=== PATIENT | female | born 1960 | race Caucasian/White ===

== ENCOUNTER 2022-05-07 15:22 | Outpatient (CLI) | payer OTHER | END 2022-05-07 15:23 | disposition critical access hospital (66) | LOC: EMS 15:22 | DX: R56.9 Unspecified convulsions (principal) | CPT/HCPCS: A0425; A0429 ==

== ENCOUNTER 2022-05-07 15:42 | Emergency (ER) | payer OTHER ==
[2022-05-07 16:14] LABS: BASOPHILS # (AUTO) 0.1 10^3/uL (0.0-0.1); BASOPHILS % (AUTO) 0.6 %; EOSINOPHILS # (AUTO) 0.1 10^3/uL (0.0-0.7); EOSINOPHILS % (AUTO) 1.2 %; HCT - HEMATOCRIT 38.5 % (37.0-47.0); HGB - HEMOGLOBIN 12.6 g/dL (12.0-16.0); LYMPHOCYTES # (AUTO) 1.7 10^3/uL (1.5-3.5); LYMPHOCYTES % (AUTO) 19.3 %; MEAN CORPUSCULAR HEMOGLOBIN 30.9 pg (27.0-31.0); MEAN CORPUSCULAR HGB CONC 32.7 g/dL (32.0-36.0); MEAN CORPUSCULAR VOLUME 94.4 fL (81.0-99.0); MEAN PLATELET VOLUME 10.8 fL (7.9-10.8); MONOCYTES # (AUTO) 0.3 10^3/uL (0.0-1.0); MONOCYTES % (AUTO) 3.6 %; NEUTROPHILS # (AUTO) 6.6 10^3/uL (1.5-6.6); PLT - PLATELET COUNT 239 10^3/uL (130-450); RED BLOOD COUNT 4.08 10^6/uL (4.20-5.40); RED CELL DISTRIBUTION WIDTH 13.3 % (12.0-15.0); WHITE BLOOD COUNT 8.9 x10^3/uL (4.8-10.8)
[2022-05-07 16:27] LABS: ALBUMIN 3.6 g/dL (3.2-5.5); ALBUMIN/GLOBULIN RATIO 1.1 (1.0-2.2); BILIRUBIN,TOTAL 0.4 mg/dL (0.2-1.0); CALCIUM 9.3 mg/dL (8.5-10.3); CREATININE 0.8 mg/dL (0.4-1.0); POTASSIUM 3.6 mmol/L (3.5-5.0)
--- NOTE | 2022-05-07 16:34 | ED Physician Documentation ---
History of Present Illness - Stated complaint Stated Complaint: SZ - Chief complaint Chief Complaint: Neuro - Additonal information Additional information: 61-year-old female presents to the emergency department for evaluation after apparent witnessed seizure activity. [place] They were at the local grocery store. The patient began to behave abnormally as she was staring off into space and had a rhythmic jerking of her right hand. Her was able to walk her away from the public and sat her down but she suddenly became rigid, he reports facial contortions and she became incontinent of urine. She was laid in the recovery position on the right side and her stated that she was drooling. The symptoms lasted less than a minute. Patient is amnesic to these events. 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 Family reports "medical treatment" only. 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 The tumor was surgically resected and she underwent 37 rounds of radiation. She has been followed by a neuro oncologist since. Previous to today she has no history of seizure activity. Patient is also reporting mild substernal non radiating chest pain right now. She is currently Taking estradiol only secondary to history of previous hysterectomy. Non-smoker. No history of hypertension. Per her at this time she is at her neurological baseline. Review of Systems Constitutional: denies: Fever, Chills Cardiac: reports: Chest pain / pressure Respiratory: reports: Reviewed and negative GI: reports: Reviewed and negative Skin: reports: Reviewed and negative Neurologic: reports: Seizure PD PAST MEDICAL HISTORY - Present Medications Home Medications: Ambulatory Orders Medication Instructions Recorded Confirmed Estradiol [Estrace] 0.5 mg PO BID 05/07/22 05/07/22 levETIRAcetam [Keppra] 500 mg PO BID 14 Days #56 tablet 05/07/22 - Allergies Allergies/Adverse Reactions: Allergies Allergy/AdvReac Type Severity Reaction Status Date / Time No Known Drug Allergies Allergy Verified 05/07/22 15:51 PD ED PE NORMAL - General General: Alert and oriented X 3, No acute distress, Well developed/nourished - HEENT HEENT: Atraumatic, Moist mucous membranes - Neck Neck: Supple, no meningeal sign, No adenopathy - Cardiac Cardiac: RRR, No murmur, No gallop - Respiratory Respiratory: No respiratory distress - Abdomen Abdomen: Normal bowel sounds, Soft - Derm Derm: Normal color, Warm and dry - Extremities Extremities: No deformity, No tenderness to palpate, Normal ROM s pain - Neuro Neuro: Alert and oriented X 3, auto body repairer 2-12 intact, No motor deficit, No sensory deficit, Normal speech, Other (Normal speech, normal finger-nose. NIHSS of 0) Eye Opening: Spontaneous Motor: Obeys Commands Verbal: Oriented GCS Score: 15 Results - Vitals Vitals: Vital Signs - 24 hr 05/07/22 05/07/22 05/07/22 15:45 15:51 17:51 Temperature 36.9 C Heart Rate 95 85 Respiratory 25 H 17 Rate Blood Pressure 113/65 104/54 L O2 Saturation 99 100 05/07/22 05/07/22 19:00 21:08 Temperature Heart Rate 85 77 Respiratory 24 20 Rate Blood Pressure 103/66 111/59 L O2 Saturation 98 96 Oxygen O2 Source Room air - EKG (time done) 1635 Rate: Rate (enter#) (83) Rhythm: NSR. No: Other [place]: Normal Intervals: Normal NE. No: Prolonged QT QRS: Normal Ischemia: Normal ST segments Compare to prior EKG: Old EKG unavailable Computer interpretation: Agree with computer - Labs Labs: Laboratory Tests 05/07/22 05/07/22 05/07/22 16:09 16:09 16:09 WBC 8.9 RBC 4.08 L Hgb 12.6 Hct 38.5 MCV 94.4 MCH 30.9 MCHC 32.7 RDW 13.3 Plt Count 239 MPV 10.8 Neut # (Auto) 6.6 Lymph # (Auto) 1.7 [place] # (Auto) 0.3 Eos # (Auto) 0.1 Baso # (Auto) 0.1 Absolute Nucleated RBC 0.00 Nucleated RBC % 0.0 Sodium 140 Potassium 3.6 Chloride 104 Carbon Dioxide 21 Anion Gap 15.0 H BUN 14 Creatinine 0.8 Estimated GFR (MDRD) 73 L Glucose 104 H Calcium 9.3 Total Bilirubin 0.4 AST 23 ALT 17 Alkaline Phosphatase 49 Troponin I High Sens 8.7 Total Protein 7.0 Albumin 3.6 Globulin 3.4 Albumin/Globulin Ratio 1.1 Lipase 67 H 05/07/22 05/07/22 19:00 21:07 WBC RBC Hgb Hct MCV MCH MCHC RDW Plt Count MPV Neut # (Auto) Lymph # (Auto) [place] # (Auto) Eos # (Auto) Baso # (Auto) Absolute Nucleated RBC Nucleated RBC % Sodium Potassium Chloride Carbon Dioxide Anion Gap BUN Creatinine Estimated GFR (MDRD) Glucose Calcium Total Bilirubin AST ALT Alkaline Phosphatase Troponin I High Sens 57.6 H* 60.5 H* Total Protein Albumin Globulin Albumin/Globulin Ratio Lipase - Rads (name of study) ct head Radiology: Final report received (Postsurgical sequelae. No definite acute intracranial abnormality. ) PD Medical Decision Making - ED course Complexity details: reviewed results, re-evaluated patient, considered differential, d/w patient ED course: 61-year-old female presents the emergency department for seizure activity that occurred while shopping this afternoon at a grocery store. Her describes rhythmic jerking of her right arm. Facial contortions as well as incontinence of her bladder. History is preceded by a brain tumor that was resected a number of years ago she is status post 37 doses of radiation. She has no previous history however of seizures and has been on no antiepileptic drugs. The patient is amnesic to today's seizure but states that about 6 weeks ago she was walking and began to feel uncomfortable and started to have uncontrolled rhythmic jerking of her right arm. She sat down and stated that she continued to have this jerking of her right arm for about 2 minutes before it stopped. Here in the emergency department she presents well-appearing and at her baseline mentation. She has no obvious focal neurodeficits. Her reports that she appears to be at her baseline. Her NIHSS is 0. A CT of the head was completed that shows postsurgical sequelae but no acute events. I did obtain a CBC and electrolytes and per my interpretation no acute worrisome findings. Patient is followed by neurologist in [place] where she resides. I discussed the option of initiating antiepileptics today or waiting to follow-up with her neurologist but she would like to start today therefore I have loaded her with a gram of Keppra IV in the ED and will start her on Keppra 500 twice daily orally. Patient had also reported chest pain upon arrival to the emergency department. She does have a history of spontaneous coronary dissection. Her EKG here is nonischemic. Though I have no comparison or previous. Initial troponin was negative. But given the history of coronary dissection a second Trope/delta was ordered And was mildly elevated at 57. A third troponin was then obtained approximately 6 hours after her event and was flat at 60. Given the history of coronary artery dissection we will reach out to cardiology for further evaluat ion. The patient has been administered 325 mg of aspirin and is free of chest pain at this time. I suspect the mildly elevated troponin is likely secondary to her seizure, but given the hx of coronary dissection, I will reach out to [facility] cardiology for consult pt will be signed out to my night time colleague to f/u on cardiology consult. if deemed stable patient will be discharged home with a prescription for the Keppra. Advised very close follow-up with her neurologist or neuro oncologist. We also discussed emergent return precautions for recurrent seizures, chest pain and shortness of air Departure - Departure Disposition: 01 Home, Self Care Clinical Impression: Seizure, History of ND (myocardial infarction), Elevated troponin Chest pain Qualifiers: Chest pain type: unspecified Qualified Code(s): R07.9 - Chest pain, unspecified Condition: Stable Instructions: ED Chest Pain Atypical Unkn Cause, ED Seizure New Onset Unk Cause Follow-Up: your,doctor in 1 week [Other] Prescriptions: levETIRAcetam [Keppra] 500 mg PO BID 14 Days #56 tablet Comments: You came to the emergency department today because you had a witnessed seizure at the grocery store. You also report that about 6 weeks ago you had some rhythmic jerking of your right arm that was similar to what preceded today's events. You do have a history of a brain tumor that has been surgically removed as well as radiation therapy to the brain. Here in the emergency department your neurological exam was normal and did not show any findings of a stroke. The CT scan completed today showed postsurgical changes but no acute findings to suggest bleeding within the brain. Because this is apparently the second seizure like episode over the last 6 weeks we will start you on an antiepileptic medication called Keppra. You were given a loading dose here in the ER and will begin taking 500 mg twice daily. It is important that when you follow-up with your neurologist or neuro oncologist in [place] you discuss this ED visit. They may elect not to keep you on the Keppra and may prefer other evaluation and treatment instead. Your EKG did not show any signs of a heart attack. Your first troponin was negative but because you arrive so soon after the event we did a obtain serial troponins. These were mildly elevated. However, troponin can be elevated after seizure activity. In addition, berto alcaraz levels did not rise into a "worrisome range." I did discuss this case with cardiology at [facility] and they recommend following up with your insole lip turner. As you do have a history of having a spontaneous coronary dissection it is important you also discuss this episode of chest pain with your cardiology team though no acute treatment was necessary today. Return immediately to the ER if you develop worsening symptoms, have a recurrent seizure, have uncontrolled chest pain, shortness of air or any other emergent concerns
--- NOTE | 2022-05-07 17:27 | CT Report ---
PROCEDURE: HEAD WO INDICATIONS: seizure TECHNIQUE: Noncontrast 4.5 mm thick angled axial sections acquired from the foramen magnum to the vertex. For r adiation dose reduction, the following was used: automated exposure control, adjustment of mA and/or kV according to patient size. COMPARISON: None. FINDINGS: Image quality: Excellent. CSF spaces: Basal cisterns are patent. No extra-axial fluid collections. Ventricles are normal in size and shape. Dural thickening underlying the left superior frontal craniotomy. Brain: No midline shift. No intracranial masses or hemorrhage. Dalton-white matter interface is norm al. Skull and face: Left superior frontal craniotomy. Calvarium and visualized facial bones are otherwis e intact, without suspicious lesions. Sinuses: Visualized sinuses and mastoids are clear. IMPRESSION: 1. Postsurgical sequelae. 2. No definite acute intracranial normality. 3. Recommend obtaining prior outside head CT examinations for comparison to assess for interval hameed e. Reviewed by: Jose Dawn MD on 05/07/2022 4:55 PM PST Approved by: Jose Dawn MD on 05/07/2022 4:55 PM PST Station ID: [id number]
[2022-05-07] MEDS ORDERED: levETIRAcetam INJ 1,000 MG in SODIUM CHLORIDE 0.9% 100ML 100 ML IV STA (17:48)
[2022-05-07] MEDS ORDERED: ASPIRIN 325 MG TABLET PO STA (19:35)
[2022-05-07] MEDS ORDERED: ACETAMINOPHEN 325 MG TABLET PO STA (19:35)
--- NOTE | 2022-05-07 21:13 | XRAY Report ---
PROCEDURE: Chest 1 View X-Ray INDICATIONS: chest pain TECHNIQUE: One view of the chest was acquired. COMPARISON: None. FINDINGS: Surgical changes and devices: None. Lungs and pleura: No pleural effusions or pneumothorax. Lungs are clear. Mediastinum: Mediastinal contours appear normal. Heart size is normal. Bones and chest wall: No suspicious bony lesions. Overlying soft tissues appear unremarkable. IMPRESSION: 1. No acute cardiopulmonary disease. Reviewed by: Raphael Shepard MD on 05/07/2022 9:[address] [facility] Approved by: Raphael Shepard MD on 05/07/2022 9:[address] [facility] Station ID: [id number]
--- NOTE | 2022-05-07 23:00 | ED Physician Documentation ---
ED Addendum - Addendum Addendum: 05/07/22 22:58 I reviewed the patient's care with Dr. Montez, Cardiology at [facility]. The patient's symptoms were atypical for acute coronary syndrome. Patient and family both report that her angiogram 3 years ago was normal except for the small coronary artery dissection. She is fully asymptomatic here. EKG does not show any acute abnormalities. Mild high-sensitivity troponin elevation could be due to the seizure activity. There is no significant change between the second and third troponin. Patient and family are comfortable going home at this time and will follow-up with her lace pinner in [place]. Patient and family counseled regarding signs and symptoms for which I believe and urgent re- evaluation would be necessary. Patient with good understanding of and agreement to plan and is comfortable going home at this time This document was made in part using voice recognition software. While efforts are made to proofread this document, sound alike and grammatical errors may occur. Departure - Departure Disposition: 01 Home, Self Care Clinical Impression: Seizure, History of ID (myocardial infarction), Elevated troponin Chest pain Qualifiers: Chest pain type: unspecified Qualified Code(s): R07.9 - Chest pain, unspecified Condition: Stable Instructions: ED Chest Pain Atypical Unkn Cause, ED Seizure New Onset Unk Cause Follow-Up: your,doctor in 1 week [Other] Prescriptions: levETIRAcetam [Keppra] 500 mg PO BID 14 Days #56 tablet Comments: You came to the emergency department today because you had a witnessed seizure at the grocery store. You also report that about 6 weeks ago you had some rhythmic jerking of your right arm that was similar to what preceded today's events. You do have a history of a brain tumor that has been surgically removed as well as radiation therapy to the brain. Here in the emergency department your neurological exam was normal and did not show any findings of a stroke. The CT scan completed today showed postsurgical changes but no acute findings to suggest bleeding within the brain. Because this is apparently the second seizure like episode over the last 6 weeks we will start you on an antiepileptic medication called Keppra. You were given a loading dose here in the ER and will begin taking 500 mg twice daily. It is important that when you follow-up with your neurologist or neuro oncologist in [place] you discuss this ED visit. They may elect not to keep you on the Keppra and may prefer other evaluation and treatment instead. Your EKG did not show any signs of a heart attack. Your first troponin was negative but because you arrive so soon after the event we did a obtain serial troponins. These were mildly elevated. However, troponin can be elevated after seizure activity. In addition, yor tronon levels did not rise into a "worrisome range." I did discuss this case with cardiology at [facility] and they recommend following up with your lace pinner. As you do have a history of having a spontaneous coronary dissection it is important you also discuss this episode of chest pain with your cardiology team though no acute treatment was necessary today. Return immediately to the ER if you develop worsening symptoms, have a recurrent seizure, have uncontrolled chest pain, shortness of air or any other emergent concerns
[2022-05-07 23:17] VITALS: BP 93/52
== END 2022-05-07 23:21 | disposition home or self-care (01) ==
LOC: ED 15:42
DX: R56.9 Unspecified convulsions (principal); R77.8 Other specified abnormalities of plasma proteins; R07.9 Chest pain, unspecified; I25.2 Old myocardial infarction
CPT/HCPCS: 36415; 70450; 71045; 80053; 83690; 84484; 85025; 93005; 96365; 99284; 99285; A9270